=== PATIENT | female | born 1970 | race Caucasian/White ===

== ENCOUNTER 2024-10-15 08:21 | Outpatient (CLI) | payer BC | END 2024-10-15 08:22 | disposition home or self-care (01) | LOC: CSHSLEEP 08:21 | PROVIDERS: ATTEND Family Medicine | DX: G47.33 Obstructive sleep apnea (adult) (pediatric) (principal); R53.83 Other fatigue; E66.9 Obesity, unspecified; Z68.41 Body mass index [BMI] 40.0-44.9, adult; R06.83 Snoring | CPT/HCPCS: 95800 ==